=== PATIENT | female | born 1965 | race Two or more races ===

== ENCOUNTER → 2020-06-08 | Outpatient (CLI) | payer OTHER ==
--- NOTE | 2020-06-08 14:46 | RAD ---
XR HIP (WITH OR WITHOUT PELVIS) 1 VIEW DATE: 06/08/2020 10:12 AM INDICATION: Reason: HIP PAIN / Spl. Instructions: / History: COMPARISON: None. FINDINGS: Bones: There is no evidence of acute fracture or dislocation. Joints: Moderate degenerative changes of the hips. SI joints and symphysis pubis are congruent. Miscellaneous: Pelvic phleboliths. IMPRESSION: Moderate degenerative changes of the hips. Electronically signed by: Johnathon Meng MD (06/08/2020 2:43 PM) [id number]
== END ==
LOC: RAD 10:00
PROVIDERS: ATTEND Family Medicine
DX: M16.0 Bilateral primary osteoarthritis of hip (principal); I87.8 Other specified disorders of veins
CPT/HCPCS: 73521